=== PATIENT | male | born 1985 | race Two or more races ===

== ENCOUNTER 2018-11-21 09:27 | Day surgery (SDC) | payer OTHER ==
[~2018-11-21] VITALS: Ht 170.2 cm; Wt 90.7 kg
[2018-11-21] VITALS (9 sets, daily range): BP systolic 97–118; BP diastolic 57–74
--- NOTE | 2018-11-21 07:17 | Anethesia Preoperative Eval ---
Anesthesia Pre-op PMH/ROS General Date of Evaluation: Nov 21, 2018 Time of Evaluation: 07:15 Anesthesiologist: marcelo ASA Score: ASA 3 Mallampati Score Class I : Soft palate, uvula, fauces, pillars visible Class II: Soft palate, uvula, fauces visible Class III: Soft palate, base of uvula visible Class IV: Only hard plate visible Mallampati Classification: Class II Surgeon: dewayne Diagnosis: gerd Surgical Procedure: egd Anesthesia History: none Social History: smoking - nonsmoker Family History: no anesthesia problems Allergies: Coded Allergies: No Known Allergies (Unverified , 11/21/18) Medications: see eMAR Patient NPO?: Yes Past Medical History Gastrointestinal/Genitourinary: Reports: GERD Hematology/Immune: Reports: DVT PSxH Narrative: ivc filter, ortho sx bilateral lower extremity and left hand Anesthesia Pre-op Phys. Exam Physician Exam Last Vital Signs Date Time Temp Pulse Resp B/P (MAP) Pulse Ox O2 Delivery O2 Flow Rate FiO2 11/21/18 09:52 98.1 60 18 115/70 98 Room Air Constitutional: NAD Neurologic: CN 2-12 intact Cardiovascular: RRR Respiratory: CTA Gastrointestinal: S/NT/ND Airway Exam Mallampati Score: Class II MO: full Neck: flexible TMD: 2fb ROM: full Anesthesia Pre-op A/P Risk Assessment & Plan Assessment: asa2 Plan: mac Status Change Before Surgery: No Pre-Antibiotics Drug: Sarai Guido MD Nov 21, 2018 07:17
[~2018-11-21 09:27] MED LIST: Atropine Inj 1mg/10ml Syr IV PRN; DiphenhydrAMINE 50mg/ml Inj IVP PRN; GABAPENTIN100 MG ORAL; LR 1000ml 1,000 ML IVLG SCH; MORPHINE IR15 MG ORAL; Midazolam 2mg/2ml Inj IVP PRN; OMEPRAZOLE20 M2 ORAL; PERCOCET 10-321 EACH ORAL; fentaNYL 100 mcg/2 mL IV PRN
[2018-11-21] MEDS ORDERED: Propofol 200mg/20ml IV ONE (10:00)
[2018-11-21] MEDS ORDERED: LR 1000ml ONE (10:00)
[2018-11-21] MEDS ORDERED: Lidocaine 1% MPF 10mg/ml 5ml ONE (10:00)
--- NOTE | 2018-11-21 10:06 | Short Stay Surgery H&P ---
History of Present Illness History of Present Illness Chief Complaint Patient has GERds and abdominal pains HPI Pelon Pineda is a 33 year old male who was admitted on for GERD/abdominal pains Patient History Allergies: Coded Allergies: No Known Allergies (Unverified , 11/21/18) Past Surgeries: (1) Status post fracture of femur (2) Postoperative pain of knee Medication History Scheduled Gabapentin* (Gabapentin*), 100 MG ORAL THREE TIMES A DAY, (Reported) Omeprazole (Omeprazole), 20 MG ORAL DAILY, (Reported) Scheduled PRN Morphine HCl (Morphine Sulfate ER), 30 MG ORAL Q12 PRN for For Pain, (Reported) Oxycodone Hcl/Acetaminophen 10-325 Mg Tablet (Percocet 10-325 Mg Tablet*), 1 TAB ORAL Q6H PRN for For Pain, (Reported) Review of Systems Cardiovascular: Reports: no symptoms Respiratory: Reports: no symptoms Skeletal: Reports: trauma Gastrointestinal: Reports: gastro esophageal reflux disease Genitourinary: Reports: no symptoms Neurologic: Reports: no symptoms Endocrine: Reports: no symptoms Physical Exam Vital Signs Last Vital Signs Date Time Temp Pulse Resp B/P (MAP) Pulse Ox O2 Delivery O2 Flow Rate FiO2 11/21/18 09:52 98.1 60 18 115/70 98 Room Air Skin: normal HENT: normal Lungs: normal Abdomen: abnormal Extremities: normal Genitourinary: normal Plan Plan of Care Upper Gi endoscopy with biopsy Preop Interventions None. Summary of Findings See the reports Attestation Are the patient's medical conditions optimized for surgery? Attestation Response: yes Akua Appiah MD Nov 21, 2018 10:06
--- NOTE | 2018-11-21 10:07 | Pre-Procedure Note/Attestation ---
Pre-Procedure Note/Attestation Complete Prior to Procedure Planned Procedure: left Procedure Narrative: Examination of the upper GI tract via endoscopy with obtaining biopsy Indications for Procedure Pre-Operative Diagnosis: R/O Gastritis/Esophagitis/Peptic ulcer Attestation I attest that I discussed the nature of the procedure; its benefits; risks and complications; and alternatives (and the risks and benefits of such alternatives ), prior to the procedure, with the patient (or the patient's legal patient admitting representative). I attest that, if there was a reasonable possibility of needing a blood transfusion, the patient (or the patient's legal patient admitting representative) was given the [place] [facility] standardized written summary, pursuant to the Felipe Stephanie Blood Safety Act ([place] Health and Safety Code # 1645, as amended). I attest that I re-evaluated the patient just prior to the surgery and that there has been no change in the patient's H&P, except as documented below: Akua Appiah MD Nov 21, 2018 10:07
--- NOTE | 2018-11-21 10:50 | Endoscopy Procedure Note ---
Endoscopy Procedure Note General Indication for Procedure: Abdominal pains/ Gerds. Procedures Performed: EGD - Small Hiatal Hernia and gastric polyposis, few polyps removed. Gastric biopsy also obtained. Specimen: yes Pt Tolerated Procedure Well: Yes Estimated Blood Loss: none Anesthesia Anesthesiologist: Dr. Osgeuera Anesthesia: moderate sedation Medications Medication Given: see anesthesia record Inserted Devices Implant(s) used?: No Quality Quality of Bowel Preparation: Excellent Was there any complications?: No GI Core Measures 50 yrs or older w/o bx or poly: Not Applicable 10yrs. F/U recommended: Not Applicable If not recommended, why?: Med reason:<3 yrs.: System Reason:<3 yrs.: Akua Appiah MD Nov 21, 2018 10:50
--- NOTE | 2018-11-21 10:50 | Discharge Instructions ---
Discharge Instructions Discharge Instructions Follow up with: Visit the doctor in office after 2 weeks. For Congestive Heart Failure Reminder Report to your physician any weight gain of 5 pounds or more in one week. Akua Appiah MD Nov 21, 2018 10:50
--- NOTE | 2018-11-21 11:17 | Immediate Post-Op Evaluation ---
Immediate Post-Op Evalulation Immediate Post-Op Evalulation Procedure: egd w/bx Date of Evaluation: Nov 21, 2018 Time of Evaluation: 11:15 IV Fluids: 300ml lr Blood Products: none Estimated Blood Loss: negligible Blood Pressure Systolic: 97 Blood Pressure Diastolic: 62 Pulse Rate: 75 Respiratory Rate: 18 O2 Sat by Pulse Oximetry: 100 Temperature (Fahrenheit): 97.5 Pain Score (1-10): 0 Nausea: No Vomiting: No Complications none Patient Status: awake, reacts, patent Hydration Status: adequate Drug: Sarai Guido MD Nov 21, 2018 11:17
--- NOTE | 2018-11-21 11:18 | 48 Hour Post Anesthesia Eval ---
Post Anesthesia Evaluation Procedure: egd w/bx Date of Evaluation: Nov 21, 2018 Time of Evaluation: 11:17 Blood Pressure Systolic: 104 0: 66 Pulse Rate: 74 Respiratory Rate: 18 Temperature (Fahrenheit): 97.5 O2 Sat by Pulse Oximetry: 98 Airway: patent Nausea: No Vomiting: No Pain Intensity: 0 Cardiopulmonary Status: stable Mental Status/LOC: patient returned to baseline Post-Anesthesia Complications: none Follow-up care needed: N/A Sarai Oseguera MD Nov 21, 2018 11:18
--- NOTE | 2018-11-21 17:00 | Operative Note - Dictated ---
DATE OF OPERATION: 11/21/2018 SURGEON: Akua Appiah M.D. PROCEDURE: Esophagogastroduodenoscopy with biopsy and polypectomy. PREOPERATIVE DIAGNOSES: 1. Abdominal pain. 2. Epigastric pain. 3. History of gastroesophageal reflux. POSTOPERATIVE DIAGNOSES: 1. Evidence of a small hiatal hernia. 2. Multiple polyps in the stomach consistent with gastric polyposis. Biopsy was obtained from the polyps and a few of the polyps were removed as well as gastric biopsy was done from gastric tissue. MEDICATION USED: Per Dr. Vaughan, anesthesiologist. INSTRUMENT: GIF Olympus upper GI video endoscope. DESCRIPTION OF PROCEDURE: The patient after arriving in endoscopy unit, was told about risks and benefits of the procedure, which he accepted and signed informed consent. At this time, he was put in the left lateral decubitus position. After adequate IV sedation, the scope was gently passed through the cricopharyngeal area, was lodged into the upper esophagus gradually advanced towards gastroesophageal junction. The entire length of the esophagus looked normal. No evidence of inflammatory process, ulceration, varices etc. was found. There was however evidence of small to moderate-sized hiatal hernia without any Ponce's. At this time, the scope was advanced into the stomach. Gastric cavity was distended and it immediately revealed that there were numerous polypoid lesions different sizes approximately 0.5 cm to 1 cm along the greater curvature and posterior part of the stomach. At this point, biopsy from some small polyps were obtained and a few other large polyps were also removed with hot snare. The site of the polypectomy did not reveal any bleeding. The rest of the gastric tissue revealed normal finding without any evidence of gastritis. At this point, one random biopsy from gastric body obtained. Subsequently, the scope was passed through the antrum. First and second portion of duodenum were found to be completely normal. Finally, the scope was pulled out. The procedure was terminated. The patient tolerated the procedure well and left the endoscopy room in a good condition. Akua Appiah M.D. DR: ANTHONY JOB#: [id number] CC:
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
== END 2018-11-21 12:15 | disposition home or self-care (01) ==
LOC: GAS 09:27
DX: R10.9 Unspecified abdominal pain (principal); K21.9 Gastro-esophageal reflux disease without esophagitis; K44.9 Diaphragmatic hernia without obstruction or gangrene; K31.7 Polyp of stomach and duodenum; Z79.899 Other long term (current) drug therapy; Z86.718 Personal history of other venous thrombosis and embolism; K29.50 Unspecified chronic gastritis without bleeding
CPT/HCPCS: 43239; J2704; 94003; 94150